=== PATIENT | female | born 1995 | race Caucasian/White ===

== ENCOUNTER 2021-02-09 18:49 | Emergency (ER) | payer OTHER ==
[~2021-02-09] VITALS: Ht 162.6 cm; Wt 52.2 kg
[2021-02-09] MEDS ORDERED: BACTRIM DS TAB1 EACH PO (19:56)
== END 2021-02-09 19:58 | disposition home or self-care (01) ==
LOC: ER 18:49
DX: N39.0 Urinary tract infection, site not specified (principal)

== ENCOUNTER 2021-02-27 11:48 | Emergency (ER) | payer OTHER ==
[~2021-02-27] VITALS: Ht 162.6 cm; Wt 54.0 kg
[~2021-02-27 11:48] MED LIST: BACTRIM DS TAB1 EACH PO
[2021-02-27] MEDS ORDERED: DICLOFENAC POTA50 MG PO (13:52)
[2021-02-27] MEDS ORDERED: ORPHENADRINE C100 MG PO (13:52)
== END 2021-02-27 14:05 | disposition home or self-care (01) ==
LOC: ER 11:48
DX: M62.838 Other muscle spasm (principal)

== ENCOUNTER 2021-04-03 06:19 | Emergency (ER) | payer OTHER ==
[~2021-04-03] VITALS: Ht 162.6 cm; Wt 51.3 kg
[~2021-04-03 06:19] MED LIST changes: +DICLOFENAC POTA50 MG PO; +ORPHENADRINE C100 MG PO
== END 2021-04-03 14:23 | disposition home or self-care (01) ==
LOC: ER 06:19
DX: N83.292 Other ovarian cyst, left side (principal); N93.8 Other specified abnormal uterine and vaginal bleeding

== ENCOUNTER 2021-05-08 08:00 | Outpatient (CLI) | payer OTHER | END 2021-05-08 08:30 | disposition home or self-care (01) | LOC: PPH VACUNA 08:00 | DX: Z23 Encounter for immunization (principal) ==

== ENCOUNTER 2021-05-29 08:00 | Outpatient (CLI) | payer OTHER | END 2021-05-29 08:30 | disposition home or self-care (01) | LOC: PPH VACUNA 08:00 | DX: Z23 Encounter for immunization (principal) ==

== ENCOUNTER 2021-09-07 10:02 | Emergency (ER) | payer OTHER ==
[~2021-09-07] VITALS: Ht 162.6 cm; Wt 49.0 kg
[2021-09-07] MEDS ORDERED: PYRIDIUM DS200 MG PO (13:48)
[2021-09-07] MEDS ORDERED: MACRODANTIN100 M1 PO (13:48)
[2021-09-07] MEDS ORDERED: UTIX PO (13:48)
== END 2021-09-07 13:50 ==
LOC: ER 10:02
DX: N39.0 Urinary tract infection, site not specified (principal); B96.29 Other Escherichia coli [E. coli] as the cause of diseases classified elsewhere

== ENCOUNTER 2023-10-15 19:24 | Emergency (ER) | payer OTHER ==
[~2023-10-15] VITALS: Ht 162.6 cm; Wt 51.7 kg
[~2023-10-15 19:24] MED LIST changes: +MACRODANTIN100 M1 PO; +PYRIDIUM DS200 MG PO; +UTIX PO
== END 2023-10-15 23:37 | disposition home or self-care (01) ==
LOC: ER 19:25
DX: K64.8 Other hemorrhoids (principal)

== ENCOUNTER 2023-12-13 10:29 | Emergency (ER) | payer OTHER ==
[~2023-12-13] VITALS: Ht 162.6 cm; Wt 49.4 kg
[2023-12-13] MEDS ORDERED: KETOROLAC TROMETHAMINE 30 MG VIAL IM ONE (13:30)
[2023-12-13 14:19] LABS: HEMATOCRIT 41.8 % (36.0-45.00); HEMOGLOBIN 14.1 g/dL (12.0-15.00); MEAN CELL VOLUME 84.7 fL (80.00-100.00); MEAN CORPUSCULAR HEMOGLOBIN 28.6 pg (27.00-32.0); MEAN CORPUSCULAR HGB CONC 33.7 g/dl (32.0-36.0); PLATELET COUNT 182 K/uL (150-450); RED BLOOD COUNT 4.94 M/uL (4.00-6.00); RED CELL DISTRIBUTION WIDTH 14.7 % (11.5-14.5)
[2023-12-13] MEDS ORDERED: OSELTAMIVIR PHO75 MG PO ×2 (15:35→15:57)
== END 2023-12-13 16:10 | disposition home or self-care (01) ==
LOC: ER 10:29
PROVIDERS: General Practice
DX: J10.1 Influenza due to other identified influenza virus with other respiratory manifestations (principal)

== ENCOUNTER 2025-01-24 08:21 | Emergency (ER) | payer OTHER ==
[~2025-01-24] VITALS: Ht 162.6 cm; Wt 53.5 kg
[~2025-01-24 08:21] MED LIST changes: +OSELTAMIVIR PHO75 MG PO
[2025-01-24 08:24] VITALS: BP 109/70; O2SAT 98
[2025-01-24] MEDS ORDERED: GUAIFENESIN/DEXTROMETHORPHAN 100MG/10ML BLIST.PACK PO ONE ×2 (08:30→08:36)
[2025-01-24] MEDS ORDERED: ACETAMINOPHEN 500 MG GEL..CAP PO ONE ×2 (08:30→08:35)
[2025-01-24] MEDS ORDERED: DEXAMETHASONE SODIUM PHOSPHATE 4 MG/ML VIAL IM ONE (08:30)
[2025-01-24] MEDS ORDERED: DEXAMETHASONE SODIUM PHOSPHATE 4 MG/ML VIAL ONE (08:35)
[2025-01-24 08:59] LABS: HEMATOCRIT 42.7 % (36.0-45.00); HEMOGLOBIN 14.1 g/dL (12.0-15.00); MEAN CELL VOLUME 86.8 fL (80.00-100.00); MEAN CORPUSCULAR HEMOGLOBIN 28.7 pg (27.00-32.0); MEAN CORPUSCULAR HGB CONC 33.1 g/dl (32.0-36.0); PLATELET COUNT 202 K/uL (150-450); RED BLOOD COUNT 4.92 M/uL (4.00-6.00)
[2025-01-24] MEDS ORDERED: TUSNEL LIQUID178 ML PO (10:25)
[2025-01-24] MEDS ORDERED: ZYRTEC10 MG PO (10:25)
[2025-01-24] MEDS ORDERED: ZITHROMAX500 MG PO (10:25)
== END 2025-01-24 10:39 | disposition home or self-care (01) ==
LOC: ER 08:24
PROVIDERS: General Practice
DX: B34.9 Viral infection, unspecified (principal); Z20.822 Contact with and (suspected) exposure to COVID-19